=== PATIENT | female | born 1980 | race African-American/Black ===

== ENCOUNTER 2020-05-20 11:57 | Emergency (ER) | payer MEDICAID, OTHER ==
[~2020-05-20] VITALS: Ht 167.6 cm; Wt 86.2 kg
[2020-05-20] MEDS ORDERED: PNV1TABL76 PO (12:02)
[2020-05-20 13:01] LABS: KETONES URINE NEGATIVE (NEGATIVE); LEUKOCYTE ESTERASE URINE 2+ (NEGATIVE); NITRITE URINE NEGATIVE (NEGATIVE); OCCULT BLOOD URINE 3+ (NEGATIVE); PH URINE 7.5 (4.5-8.0); PROTEIN URINE 4+ (NEGATIVE); SPECIFIC GRAVITY URINE 1.021 (1.005-1.030); UROBILINOGEN URINE 0.2 E.U./dL (0.2-1.0)
[2020-05-20 13:02] LABS: EOSINOPHILS % 0.9 % (0.0-5.0); HEMATOCRIT. 35.9 % (36.0-48.0); LYMPHOCYTES % 28.7 % (20.0-50.0); MEAN CORPUSCULAR HEMOGLOBIN 29.8 pg (28.0-32.0); MEAN CORPUSCULAR VOLUME 88.9 fL (81.0-99.0); MEAN PLATELET VOLUME 8.5 fl (7.4-10.4); MONOCYTES % 5.8 % (2.0-8.0); NEUTROPHILS % 63.6 % (40.0-76.0); PLATELET 211 x1000/uL (130-400); RED BLOOD CELL COUNT 4.04 mill/uL (4.2-5.4); RED CELL DISTRIBUTION WIDTH 13.6 % (11.6-14.6)
[2020-05-20 13:06] LABS: CLARITY URINE TURBID (CLEAR); COLOR URINE BLOODY (YELLOW)
[2020-05-20 13:07] LABS: CHLORIDE 105 mEq/L (98-107)
[2020-05-20 13:09] LABS: INR 0.9; PROTHROMBIN TIME 10.2 sec (9.6-11.0)
[2020-05-20 13:13] LABS: HCG SCREEN POSITIVE
[2020-05-20] MEDS ORDERED: NITROFURANTOIN 100MG M/M CAPSULE PO NR (13:45)
[2020-05-20 14:29] LABS: B-HCG QUANTITATIVE 43504 mIU/mL (<3)
[2020-05-20] MEDS ORDERED: NITR-87 MT (16:29)
[2020-05-20 18:02] VITALS: BP 110/71
== END 2020-05-20 18:05 | disposition home or self-care (01) ==
LOC: ER 11:57
DX: O26.891 Other specified pregnancy related conditions, first trimester (principal); O23.41 Unspecified infection of urinary tract in pregnancy, first trimester; Z3A.09 9 weeks gestation of pregnancy
CPT/HCPCS: 36415; 76801; 80053; 81003; 84702; 84703; 85025; 86850; 86900; 93005; 99285